=== PATIENT | male | born 1955 | race African-American/Black ===

== ENCOUNTER → 2016-10-06 | Outpatient (CLI) | payer MEDICARE | LOC: KOH-I 16:10 | DX: J20.9 Acute bronchitis, unspecified (principal); R06.02 Shortness of breath | CPT/HCPCS: 71020 ==

== ENCOUNTER → 2021-04-24 | Outpatient (CLI) | payer OTHER, MEDICARE | LOC: KOH-I 08:05 | DX: M54.6 Pain in thoracic spine (principal); M54.2 Cervicalgia; M25.532 Pain in left wrist; M47.814 Spondylosis without myelopathy or radiculopathy, thoracic region; M50.320 Other cervical disc degeneration, mid-cervical region, unspecified level; V89.2XXA Person injured in unspecified motor-vehicle accident, traffic, initial encounter | CPT/HCPCS: 72040; 72070; 73110 ==

== ENCOUNTER → 2021-05-16 | Outpatient (CLI) | payer MEDICARE, OTHER | LOC: KOH-I 09:43 | DX: M25.552 Pain in left hip (principal); M25.551 Pain in right hip; M51.17 Intervertebral disc disorders with radiculopathy, lumbosacral region; M54.89 Other dorsalgia | CPT/HCPCS: 72100; 73522 ==

== ENCOUNTER → 2021-11-06 | Outpatient (CLI) | payer MEDICARE, OTHER | LOC: HEART 5 07:59 | DX: R94.31 Abnormal electrocardiogram [ECG] [EKG] (principal); I20.8 Other forms of angina pectoris; R06.02 Shortness of breath; I51.7 Cardiomegaly; I34.0 Nonrheumatic mitral (valve) insufficiency | CPT/HCPCS: 78452; 93306; A9502; J2785 ==

== ENCOUNTER → 2022-03-12 | Outpatient (CLI) | payer MEDICARE, OTHER | LOC: KOH-I 15:08 | DX: R06.00 Dyspnea, unspecified (principal); E78.5 Hyperlipidemia, unspecified; R03.0 Elevated blood-pressure reading, without diagnosis of hypertension | CPT/HCPCS: 71046 ==